=== PATIENT | male | born 1975 | race Caucasian/White ===

== ENCOUNTER 2016-06-14 01:28 | Emergency (ER) | payer SELFPAY ==
--- NOTE | 2016-06-14 06:52 | ER ---
ADMIT: 06/14/2016 RM/LOC: ER [facility] MR#: [id number] [address] [facility] [id number] [address]Y COLL[address] [facility] [place] [address] [id number] Emergency Room Report SEX: M AGE: 40 : 1975 DATE: 06/14/2016 The patient is a 40-year-old male in police custody for outstanding warrants. Does admit to alcohol in meth prior to arrival. States he consumes meth and alcohol on a regular basis. Denies any health concerns or problems. Exam remarkable for nontoxic, afebrile male. Denies any suicidal ideation. Released in police custody. Nacho James MD/ pamela JOB #: [id number] CC: Nacho James MD, Attending Physician Janessa Wheeler MD, Family Physician Janessa Wheeler MD
== END 2016-06-14 01:45 | disposition home or self-care (01) ==
LOC: ER 01:28
DX: Z02.89 Encounter for other administrative examinations (principal)